=== PATIENT | female | born 1980 | race Hispanic/Latino ===

== ENCOUNTER 2022-07-22 18:31 | Emergency (ER) | payer SELFPAY ==
[~2022-07-22] VITALS: Ht 160 cm; Wt 97.0 kg
[~2022-07-22 18:31] MED LIST: HYDROCHLOROT25 MG PO; TRAMADOL HCL50 MG PO
[2022-07-22] MEDS ORDERED: NORVASC5 M1 PO (20:38)
[2022-07-22] MEDS ORDERED: GENTAMICIN SULF5 ML OD (22:11)
[2022-07-22 22:37] VITALS: BP 188/106
== END 2022-07-22 22:38 | disposition home or self-care (01) | DRG 125 ==
LOC: ED 18:31
DX: H10.9 Unspecified conjunctivitis (principal); E11.9 Type 2 diabetes mellitus without complications; I10 Essential (primary) hypertension